=== PATIENT | female | born 1985 | race Caucasian/White ===

== ENCOUNTER 2019-11-08 14:15 | Emergency (ER) | payer MEDICAID ==
[~2019-11-08] VITALS: Ht 172.7 cm; Wt 42.6 kg
[2019-11-08 14:50] VITALS: BP 109/73
--- NOTE | 2019-11-08 14:50 | NUR ---
ED Nurse Note: Patient walked in to ER c/o pelvic pain x 1 day. Denies N/V; patient rates pain at 7/10. Pt reports having an IUD in place. Patient presented AAO x4, VSS at this time, ski is warm to touch.
--- NOTE | 2019-11-08 15:04 | NUR ---
ED Nurse Note: Urine sent down to the lab.
--- NOTE | 2019-11-08 15:11 | Emergency Room Report ---
History of Present Illness General Chief Complaint: Abdominal Pain Source: Patient Present Illness HPI 34-year-old female presents with lower abdominal pain had one episode of diarrhea no aggravating relieving factors severity was mild lasting a few minutes has since resolved after ibuprofen patient denies any vaginal discharge no dysuria she states she has an IUD patient presents for evaluation Allergies: Coded Allergies: AMOXICILLIN (Verified Allergy, Unknown, 11/08/19) DOXYCYCLINE (Verified Allergy, Unknown, 11/08/19) Patient History Past Medical History: see triage record Last Menstrual Period: IUD in place : 1 Para: 0 Reviewed Nursing Documentation: PMH: Agreed; PSxH: Agreed Nursing Documentation-PMH History Of Psychiatric Problem: Yes - Bipolar Review of Systems All Other Systems: negative except mentioned in HPI Physical Exam Vital Signs Date Time Temp Pulse Resp B/P (MAP) Pulse Ox O2 Delivery O2 Flow Rate FiO2 11/08/19 14:35 98.1 68 18 109/73 (85) 92 Room Air Sp02 EP Interpretation: reviewed, normal General Appearance: well appearing, no apparent distress, alert Head: normocephalic, atraumatic Eyes: bilateral eye PERRL, bilateral eye EOMI ENT: uvula midline, moist mucus membranes Neck: supple, thyroid normal, supple/symm/no masses Respiratory: lungs clear, no respiratory distress, no retraction, no accessory muscle use Cardiovascular #1: normal peripheral pulses, regular rate, rhythm, no edema, no gallop, no murmur Gastrointestinal: non tender, soft, no guarding, no rebound 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, no CMT, no adnexal tenderness, string seen from IUD unremarkable exam Musculoskeletal: normal inspection Neurologic: alert, oriented x3 Psychiatric: mood/affect normal Skin: no rash, warm/dry Medical Decision Making Diagnostic Impression: Primary Impression: Abdominal pain Qualified Codes: R10.30 - Lower abdominal pain, unspecified ER Course 34-year-old female presents with lower abdominal pain differential diagnosis includes appendicitis diverticulitis, pelvic pain Patient with unremarkable exam soft nontender no rebound no guarding Counseled patient to follow-up with outpatient for testing for STDs list of clinics were given to patient Disposition home with return precautions follow-up with PCP Last Vital Signs Date Time Temp Pulse Resp B/P (MAP) Pulse Ox O2 Delivery O2 Flow Rate FiO2 11/08/19 14:35 98.1 68 18 109/73 (85) 92 Room Air Disposition: HOME, SELF-CARE Referrals: NOT CHOSEN IPA/,REFERRING (PCP) [facility] *Patients are seen by appointment only* [facility] Patient Instructions: Abdominal Pain, Adult Additional Instructions: The patient was provided with discharge instructions, notified to follow-up with a primary care doctor and or specialist in the next 24-48 hours, and to return to the ED if they have worsening of their symptoms. Please note that this report is being documented using [employer] technology. This can lead to erroneous entry secondary to incorrect interpretation by the dictating instrument. PLEASE FOLLOW-UP WITH PCP FOR OUTPATIENT TESTING FOR STDS Kiran Benjamin MD Nov 08, 2019 15:11
[2019-11-08 15:15] VITALS: BP 109/73
[2019-11-08 15:17] LABS: APPEARANCE,URINE CLEAR; BILIRUBIN, URINE NEGATIVE (NEGATIVE); COLOR,URINE PALE YELLOW; GLUCOSE, URINE (UA) NEGATIVE (NEGATIVE); KETONES,URINE NEGATIVE (NEGATIVE); LEUKOCYTE ESTERASE ,URINE 1+ (NEGATIVE); NITRITE,URINE NEGATIVE (NEGATIVE); PH,URINE 8 (4.5-8.0); PROTEIN,URINE NEGATIVE (NEGATIVE); UROBILINOGEN,URINE NORMAL MG/DL (0.0-1.0)
--- NOTE | 2019-11-08 16:40 | NUR ---
ED Nurse Note: Pt cleared by health care Provider for discharge. DC instructions/prescription was given and explained to pt and verbalized understanding of teachings. All medical deviecs such as ID band removed. Pt is AAO x4, ambulatory and left with all personal belongings.
== END 2019-11-08 16:41 | disposition home or self-care (01) ==
LOC: EMR 14:35
DX: R10.30 Lower abdominal pain, unspecified (principal); Z88.1 Allergy status to other antibiotic agents
CPT/HCPCS: 81003; 81025; Z7502; 99284